=== PATIENT | female | born 1990 | race Caucasian/White ===

== ENCOUNTER 2017-09-05 12:43 | Inpatient (IN) | payer OTHER ==
[~2017-09-05] VITALS: Ht 160 cm; Wt 65.9 kg
[2017-09-06] MEDS ORDERED: NEWBORN KIT ONE ×2 (07:44→08:08)
[2017-09-06] MEDS ORDERED: D5%-LACTATED RINGERS 1,000 ML IV SCH (07:59)
[2017-09-06] MEDS ORDERED: OXYTOCIN 30U/ 0.9% NaCL 500ML 500 ML IV PRN ×2 (07:59→16:01)
[2017-09-06] MEDS ORDERED: OXYTOCIN 30U/ 0.9% NaCL 500ML 500 ML IV ONE (07:59)
[2017-09-06] MEDS ORDERED: TERBUTALINE 1 MG/ML, 1ML SQ PRN (08:00)
[2017-09-06] MEDS ORDERED: PENICILLIN GK 5,000,000 UNITS in SODIUM CHLORIDE 0.9% 100 ML IVPB ONE (08:00)
[2017-09-06] MEDS ORDERED: ALUMINUM/MAG/SIMETHICONE 30 ML UDC PO PRN (08:00)
[2017-09-06] MEDS ORDERED: MISOPROSTOL 25 MCG TABLET VG PRN (08:00)
[2017-09-06] MEDS ORDERED: SODIUM CITRATE/CITRIC ACID 30 ML UDC PO PRN (08:00)
[2017-09-06] MEDS ORDERED: FENTANYL PF 100 MCG/2ML IV PRN (08:00)
[2017-09-06] MEDS ORDERED: OXYTOCIN 30U/ 0.9% NaCL 500ML 500 ML ONE (08:09)
[2017-09-06] MEDS ORDERED: MISOPROSTOL 25 MCG TABLET ONE (08:09)
[2017-09-06] MEDS ORDERED: MISOPROSTOL 200 MCG TABLET ONE (08:09)
[2017-09-06] MEDS: LACTATED RINGERS 1,000 ML IV SCH ×3 (08:23→23:05)
[2017-09-06 08:36] LABS: BASOPHILS # (AUTO) 0.03 x10^3/uL (0-0.1); BASOPHILS % (AUTO) 0 % (0-1); EOSINOPHILS # (AUTO) 0.05 x10^3/uL (0-0.4); EOSINOPHILS % (AUTO) 0 % (1-7); LYMPHOCYTES # (AUTO) 1.94 x10^3/uL (1-3.4); LYMPHOCYTES % (AUTO) 17 % (22-44); MD NO; MEAN CORPUSCULAR HEMOGLOBIN 31.2 pg (27.0-34.8); MEAN CORPUSCULAR HGB CONC 33.5 g/dL (32.4-35.8); MEAN CORPUSCULAR VOLUME 93.4 fL (80-100); MEAN PLATELET VOLUME 9.4 fL (7.4-10.4); MONOCYTES # (AUTO) 0.85 x10^3/uL (0.2-0.8); MONOCYTES % (AUTO) 7 % (2-9); NEUTROPHILS # (AUTO) 8.63 x10^3/uL (1.8-6.8); NEUTROPHILS % (AUTO) 75 % (42-75); PLATELET COUNT 204 x10^3/uL (130-400); RED BLOOD COUNT 3.84 x10^6/uL (3.82-5.3); RED CELL DISTRIBUTION WIDTH 14.1 % (9.6-15.2)
[2017-09-06] MEDS ORDERED: PLEASE ENTER HEIGHT AND WEIGHT MC SCH (09:00)
[2017-09-06] MEDS ORDERED: PLEASE ENTER ALLERGIES MC SCH ×2 (09:00→12:30)
[2017-09-06] MEDS: PENICILLIN GK 2,500,000 UNITS in DEXTROSE 5% 100 ML IVPB SCH ×3 (12:35→21:28)
[2017-09-06] MEDS ORDERED: FENTANYL PF 100 MCG/2ML ONE ×3 (20:25→23:46)
[2017-09-06] MEDS: FENTANYL PF 100 MCG/2ML IVPush PRN ×3 (20:28→23:47)
[2017-09-07] MEDS ORDERED: IBUPROFEN 600 MG TABLET ONE (02:05)
[2017-09-07] MEDS ORDERED: OXYcodone/APAP 5/325MG TABLET ONE (02:05)
[2017-09-07] MEDS ORDERED: OXYTOCIN 30U/ 0.9% NaCL 500ML 500 ML IV SCH (02:45)
[2017-09-07] MEDS ORDERED: CALCIUM CARBONATE 500 MG TAB.CHEW PO PRN (03:00)
[2017-09-07] MEDS ORDERED: OXYcodone/APAP 5/325MG TABLET PO PRN ×2 (03:00)
[2017-09-07] MEDS ORDERED: ONDANSETRON 2MG/ML, 2ML IV PRN (03:00)
[2017-09-07] MEDS ORDERED: ONDANSETRON ODT 4 MG PO PRN (03:00)
[2017-09-07 04:10] VITALS: BP 100/62
[2017-09-07 07:53] VITALS: BP 95/59
[2017-09-07 09:44] LABS: MEAN CORPUSCULAR HGB CONC 32.8 g/dL (32.4-35.8); MEAN CORPUSCULAR VOLUME 94.4 fL (80-100); MEAN PLATELET VOLUME 9.6 fL (7.4-10.4); PLATELET COUNT 194 x10^3/uL (130-400); RED BLOOD COUNT 3.55 x10^6/uL (3.82-5.3); RED CELL DISTRIBUTION WIDTH 14.7 % (9.6-15.2)
[2017-09-07 10:02] LABS: BASOPHILS # (AUTO) 0.01 x10^3/uL (0-0.1); BASOPHILS % (AUTO) 0 % (0-1); EOSINOPHILS # (AUTO) 0.02 x10^3/uL (0-0.4); EOSINOPHILS % (AUTO) 0 % (1-7); LYMPHOCYTES # (AUTO) 1.46 x10^3/uL (1-3.4); LYMPHOCYTES % (AUTO) 8 % (22-44); MD NO; MONOCYTES # (AUTO) 1.14 x10^3/uL (0.2-0.8); MONOCYTES % (AUTO) 6 % (2-9); NEUTROPHILS % (AUTO) 86 % (42-75)
[2017-09-07] MEDS: PRENATAL VIT/IRON/FA 1 EACH TABLET PO SCH (11:55)
[2017-09-07] MEDS: IBUPROFEN 600 MG TABLET PO PRN (11:55)
[2017-09-07] MEDS: DOCUSATE 100 MG CAPSULE PO PRN (11:55)
[2017-09-07 13:00] VITALS: BP 111/52
[2017-09-07] MEDS ORDERED: RHOGAM FROM BLOOD BANK 1 NOTE EA IM/IV ONE (13:00)
[2017-09-07 16:00] VITALS: BP 90/56
[2017-09-07 20:00] VITALS: BP 89/58
[2017-09-08] MEDS: IBUPROFEN 600 MG TABLET PO PRN ×2 (02:40→08:13)
[2017-09-08] MEDS: DOCUSATE 100 MG CAPSULE PO PRN (08:13)
[2017-09-08] MEDS: PRENATAL VIT/IRON/FA 1 EACH TABLET PO SCH (08:13)
[2017-09-08 08:25] VITALS: BP 100/65
[2017-09-08] MEDS ORDERED: OXYC-302 PO (10:31)
[2017-09-08] MEDS ORDERED: DOCU-131 PO (10:31)
[2017-09-08] MEDS ORDERED: IBUP-1222 PO (10:31)
== END 2017-09-08 15:00 | disposition home or self-care (01) | DRG 775 ==
LOC: LDIP 09-06 07:21 → 2NW 09-07 03:50
PROVIDERS: ADMIT Obstetrics & Gynecology; ATTEND Obstetrics & Gynecology
PROC: 10E0XZZ Delivery of Products of Conception, External Approach (ICD-10-PCS; principal; 2017-09-07)
PROC: 30233S1 Transfusion of Nonautologous Globulin into Peripheral Vein, Percutaneous Approach (ICD-10-PCS; 2017-09-07)
PROC: 10907ZC Drainage of Amniotic Fluid, Therapeutic from Products of Conception, Via Natural or Artificial Opening (ICD-10-PCS; 2017-09-07)
PROC: 3E033VJ Introduction of Other Hormone into Peripheral Vein, Percutaneous Approach (ICD-10-PCS; 2017-09-07)
DX: O99.824 Streptococcus B carrier state complicating childbirth (principal); O02.1 Missed abortion; O26.893 Other specified pregnancy related conditions, third trimester; S30.814A Abrasion of vagina and vulva, initial encounter; Z37.0 Single live birth; Z3A.39 39 weeks gestation of pregnancy; Z67.91 Unspecified blood type, Rh negative
CPT/HCPCS: 36415; 85025; 85461; 86850; 86900; J2540; J2790; J3010; J2590; J7120

== ENCOUNTER 2017-12-30 10:01 | Day surgery (SDC) | payer OTHER ==
[~2017-12-30] VITALS: Ht 160 cm; Wt 59.3 kg
[~2017-12-30 10:01] MED LIST: DOCU-131 PO; IBUP-1222 PO; OXYC-302 PO
[2017-12-30] MEDS ORDERED: DEXAMETHASONE 4 MG/ML, 1ML ONE (10:54)
[2017-12-30] MEDS ORDERED: PROPOFOL 10 MG/ML, 20ML ONE (10:54)
[2017-12-30] MEDS ORDERED: ONDANSETRON 2MG/ML, 2ML ONE (10:54)
[2017-12-30] MEDS ORDERED: CEFAZOLIN 1,000 MG ONE (10:54)
[2017-12-30] MEDS ORDERED: FENTANYL PF 250 MCG/5ML ONE (10:54)
[2017-12-30] MEDS ORDERED: MIDAZOLAM 1 MG/ML, 2ML ONE (10:54)
[2017-12-30 11:05] VITALS: BP 105/74
[2017-12-30] MEDS ORDERED: BUPIVACAINE/PF-EPI 0.25% 1:200K ONE (11:12)
[2017-12-30] MEDS ORDERED: SILVER NITRATE STICK TP ONE (11:12)
[2017-12-30] MEDS ORDERED: LACTATED RINGERS 1,000 ML IV SCH (11:27)
[2017-12-30] MEDS ORDERED: SCOPOLAMINE PATCH, 1.5MG PATCH.TD72 TD ONE (11:30)
[2017-12-30] MEDS ORDERED: ACETAMINOPHEN 500 MG TABLET PO ONE (11:30)
[2017-12-30] MEDS ORDERED: GABAPENTIN 300 MG CAPSULE PO ONE (11:30)
[2017-12-30 11:35] LABS: HCG UR SG 1.023 (1.003-1.030)
[2017-12-30 11:42] LABS: BASOPHILS # (AUTO) 0.02 x10^3/uL (0-0.1); BASOPHILS % (AUTO) 0 % (0-1); EOSINOPHILS # (AUTO) 0.07 x10^3/uL (0-0.4); EOSINOPHILS % (AUTO) 1 % (1-7); LYMPHOCYTES # (AUTO) 2.14 x10^3/uL (1-3.4); LYMPHOCYTES % (AUTO) 30 % (22-44); MD NO; MEAN CORPUSCULAR HEMOGLOBIN 30.4 pg (27.0-34.8); MEAN CORPUSCULAR HGB CONC 33.3 g/dL (32.4-35.8); MEAN CORPUSCULAR VOLUME 91.4 fL (80-100); MEAN PLATELET VOLUME 9.6 fL (7.4-10.4); MONOCYTES # (AUTO) 0.67 x10^3/uL (0.2-0.8); MONOCYTES % (AUTO) 9 % (2-9); NEUTROPHILS # (AUTO) 4.28 x10^3/uL (1.8-6.8); NEUTROPHILS % (AUTO) 60 % (42-75); PLATELET COUNT 213 x10^3/uL (130-400); RED BLOOD COUNT 4.64 x10^6/uL (3.82-5.3); RED CELL DISTRIBUTION WIDTH 12.8 % (9.6-15.2)
[2017-12-30] MEDS ORDERED: NEOSTIGMINE 1 MG/ML, 10ML ONE (11:51)
[2017-12-30] MEDS ORDERED: SUCCINYLCHOLINE 20 MG/ML, 10ML ONE (11:51)
[2017-12-30] MEDS ORDERED: ROCURONIUM 10 MG/ML,10ML ONE (11:51)
[2017-12-30] MEDS ORDERED: GLYCOPYRROLATE 0.2MG/1ML, 5ML ONE (11:51)
[2017-12-30] MEDS ORDERED: FENTANYL PF 100 MCG/2ML IV PRN (12:00)
[2017-12-30] MEDS ORDERED: OXYcodone 5 MG/5 ML ORAL.SOL UDC PO PRN (12:00)
[2017-12-30] MEDS ORDERED: HYDROmorphone 1 MG/ML, 1ML IV PRN (12:00)
[2017-12-30] MEDS ORDERED: DIPHENHYDRAMINE 50 MG/ML, 1ML IVPush PRN (12:00)
[2017-12-30] MEDS ORDERED: ONDANSETRON 2MG/ML, 2ML IV PRN (12:00)
[2017-12-30] MEDS ORDERED: FENTANYL PF 100 MCG/2ML ONE (13:00)
[2017-12-30] MEDS ORDERED: OXYcodone 5 MG/5 ML ORAL.SOL UDC ONE (13:00)
== END 2017-12-30 18:30 | disposition home or self-care (01) ==
LOC: OUT 10:01
PROVIDERS: ATTEND Obstetrics & Gynecology
DX: Z30.2 Encounter for sterilization (principal); Z98.890 Other specified postprocedural states; Z79.899 Other long term (current) drug therapy
CPT/HCPCS: 36415; 58670; 81025; 85025; 86850; 86900; 88302; J0330; J0690; J1100; J2250; J2405; J2704; J2710; J3010; J3490; J7120